=== PATIENT | female | born 1930 | race Caucasian/White ===

== ENCOUNTER 2017-03-06 09:04 | Day surgery (SDC) | payer BC ==
[2017-02-28 11:15] LABS: BASOPHILS 0.6 %; BASOPHILS ABSOLUTE 0.05 10/3/uL (0.0-0.16); EOSINOPHILS 3.7 %; EOSINOPHILS ABSOLUTE 0.33 10/3/uL (0.0-0.53); HEMOGLOBIN 12.6 g/dL (12.0-16.0); IMMATURE GRANULOCYTES 0.3 %; IMMATURE GRANULOCYTES ABSOLUTE 0.03 10/3/uL (0.0-0.11); LYMPHOCYTES ABSOLUTE 1.33 10/3/uL (0.67-4.30); MEAN CORPUS HGB CONC 34.1 g/dL (32.0-36.0); MEAN CORPUSCULAR VOLUME 96.9 fL (80-100); MEAN PLATELET VOLUME 9.6 fL (9.2-13.0); MONOCYTES 7.1 %; MONOCYTES ABSOLUTE 0.63 10/3/uL (0.21-1.20); NEUTROPHILS 73.3 %; NEUTROPHILS ABSOLUTE 6.51 10/3/uL (2.02-8.40); PLATELET COUNT 257 10/3/uL (150-400); RED CELL COUNT 3.82 10/6/uL (4.0-5.6); WHITE BLOOD CELLS 8.9 10/3/uL (4.5-10.5)
[2017-02-28 11:21] LABS: MANUAL DIFF NO %
[2017-02-28 11:27] LABS: A/G RATIO 1.1 (0.7-1.9); ALBUMIN 3.8 G/DL (3.5-5.0); ALKALINE PHOSPHATASE 97 U/L (45-117); BUN (BLOOD UREA NITROGEN) 25 MG/DL (6-23); CALCIUM, SERUM 9.1 MG/DL (8.5-10.4); CHLORIDE, SERUM 106 MMOL/L (96-112); CO2 (CARBON DIOXIDE) 31 MMOL/L (24-34); CREATININE 0.96 MG/DL (0.55-1.02); GFR AFRICAN AMERICAN 63 ML/MIN (>=60); GFR NON AFRICAN AMERICAN 54 ML/MIN (>=60); GLOBULIN 3.5 G/DL (2.5-4.1); GLUCOSE, SERUM 103 MG/DL (60-99); POTASSIUM, SERUM 3.8 MMOL/L (3.5-5.3); SGOT(AST) 15 U/L (5-40); SGPT(ALT) 23 U/L (5-65); SODIUM, SERUM 140 MMOL/L (135-148); TOTAL BILIRUBIN 0.5 MG/DL (0-1.2); TOTAL PROTEIN 7.3 G/DL (6.0-8.5)
--- NOTE | ~2017-03-06 | OP ---
Record Of Operation [facility] [address] [place]. [address] NAME: MARY MILLIGAN : 32 STATUS : REG [facility] PAT#: [id number] AGE: 86 ADM/REG DATE : 03/06/17 MR#: [id number] REPORT SERV DATE: 03/06/17 DICTATED BY: PRASANNA MONTAGUE JR. DATE: 03/06/17 REPORT STATUS : Draft TRANSCRIBED BY: MODL DATE: 03/06/17 DATE OF PROCEDURE: REASON FOR SURGERY: This 86-year-old patient, presents with a low-grade malignancy under a centimeter in size in the upper inner quadrant of the left breast. 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 SURGEON: Prasanna Montague M.D. SURGERY PERFORMED: Left breast segmentectomy. DESCRIPTION OF PROCEDURE: The patient previously underwent ultrasound localization in the [facility]. [place] node biopsy is not to be done. She was taken to the operating room and under general anesthesia, she was prepped and draped in supine position in the usual sterile fashion. The old incision was marked and incised, and flaps were elevated in each direction. The now palpable nodule was removed with a generous margin. The anterior border of the undersurface of the skin, while the fascia was exposed of the deep margin. The spherical specimen measured about 3.5 cm across and was oriented for pathology. I attended the pathological sectioning and the flattened specimen did have a generous margin in all directions except superficially. Margins appear over a centimeter except for the superficial margin that extends into the fatty tissue. For this reason, an additional hemisphere of skin was taken from the old incision superiorly where that nodule was located, with this measuring now about 4.5 x 1.5 cm. It was removed and oriented for pathology. The wound was irrigated and hemostasis was obtained. The wound was closed with two layers of Monocryl. The patient tolerated the procedure well without complications. ESTIMATED BLOOD LOSS: Less than 10 mL. SPONGE COUNT: Correct. With the additional margin, it is hoped that radiation therapy can again be avoided. She declined radiation therapy years ago, and I would be more inclined with this diagnosis to allow the patient to have surgery without radiotherapy, and certainly this is in a standard of care. The only caveat is that I would consider this a recurrent cancer, and therefore Record Of Operation [facility] [address] [place]. [address] NAME: MARY MILLIGAN : 32 STATUS : REG [facility] PAT#: [id number] AGE: 86 ADM/REG DATE : 03/06/17 MR#: [id number] REPORT SERV DATE: 03/06/17 DICTATED BY: PRASANNA MONTAGUE JR. DATE: 03/06/17 REPORT STATUS : Draft TRANSCRIBED BY: MODL DATE: 03/06/17 one could argue postoperative radiation therapy. It will not impact survival. At the present time, the patient is again declining. The role hormone blocking therapy would be for lowering risk as opposed to survival benefits and at her advanced age, the risk probably outweigh the benefits and this may well also be avoided. Final pathology will dictate additional issues. /CHRISTINA Prasanna Montague Jr., M.D. / [id number] CC: Venkat Abdullahi Jr., M.D. [facility]
[~2017-03-06 09:04] MED LIST: ASACOL PO; COMBIGAN0.2 MG/0.5 OPH; COZAAR100 MG PO; CRESTOR5 MG PO; LUMIGAN OPH; MAX25 PO; MOBIC7.5 PO; REG PO; SYN.025B PO; TETRACYCLINE500 MG PO; TOPXL25 PO; ZYRTEC ALLGY10 MG PO; [UNRECOGNIZED DRUG - OTHER] PO; [UNRECOGNIZED DRUG - OTHER] RE
[2017-03-09] MEDS ORDERED: ASACOL HD800 MG PO (23:15)
[2017-03-09] MEDS ORDERED: COZAAR100 MG PO (23:16)
== END 2017-03-06 14:04 | disposition home or self-care (01) ==
LOC: SDC 09:04
PROVIDERS: Surgery Surgical Oncology
PROC: 0HBU0ZZ Excision of Left Breast, Open Approach (ICD-10-PCS; principal; 2017-03-06 10:15)
DX: C50.212 Malignant neoplasm of upper-inner quadrant of left female breast (principal); I10 Essential (primary) hypertension; E03.9 Hypothyroidism, unspecified; K21.9 Gastro-esophageal reflux disease without esophagitis; E78.5 Hyperlipidemia, unspecified; G62.9 Polyneuropathy, unspecified; R56.9 Unspecified convulsions; Z88.5 Allergy status to narcotic agent; Z86.73 Personal history of transient ischemic attack (TIA), and cerebral infarction without residual deficits; Z88.1 Allergy status to other antibiotic agents; Z88.8 Allergy status to other drugs, medicaments and biological substances; Z90.710 Acquired absence of both cervix and uterus; Z98.890 Other specified postprocedural states
CPT/HCPCS: 71020; 80053; 85025; 88305; 88307; 88341; 88342; 88360; 93005; J0690; J2250; J2405; J3010

== ENCOUNTER 2017-03-09 23:16 | Observation (INO) | payer BC ==
--- NOTE | ~2017-03-09 | HP ---
History And Physical [facility] [address] [address] [place]. [address] NAME: MARY MILLIGAN : 32 STATUS : ADM [facility] PAT#: [id number] AGE: 86 ADM/REG DATE : 03/09/17 MR#: [id number] REPORT SERV DATE: 03/10/17 DICTATED BY: JACQUELINE HERNÁNDEZ DATE: 03/10/17 REPORT STATUS : Draft TRANSCRIBED BY: MODL DATE: 03/10/17 DATE OF ADMISSION: 03/09/2017 CHIEF COMPLAINT: An 86-year-old female, presenting with difficult recovery from her recent breast surgery for recurrent cancer and now "blank out" spell. HISTORY OF PRESENT ILLNESS: The patient's history was obtained through careful interview with the patient and daughter coupled with review of [facility] and [facility] medical records. On 03/06/2017, the patient presented for left breast surgery for recurrence of cancer. She had difficult recovery from this and over last few days has felt tired. She describes some nausea, but no vomiting. She has had increased output in her colostomy. Tonight, she went out to a restaurant with some family, was about to eat some guacamole dip, when suddenly she just started staring blankly, lost memory, and then became unresponsive for about one or two minutes. She then had one episode of vomiting. She admits that in the restaurant she was feeling lightheaded, dizzy, and ill. Her only pain complaint has been some discomfort at the site of her left breast surgery about an aching quality 4/10 severity that is constant. No abdominal pain. No chest pain. No shortness of breath. No palpitations. No fevers or chills. REVIEW OF SYSTEMS: Otherwise, a 14-point review of systems was obtained and was negative. PAST MEDICAL HISTORY: 1. Left breast cancer first diagnosed in 2003 with just recurrence in February 2017 status post surgical resection. No radiation, no chemotherapy. 2. Hypertension. 3. Hypothyroidism. 4. Cystitis with urinary tract infections. 5. Ventral hernia. 6. Neuropathy. 7. Seizure x1. 8. Diverticulitis complicated with abscess and perforation resulting in partial colectomy. 9. Left ureteral stent placement. 10.COPD. 11.Diastolic congestive heart failure. 12.Esophageal stricture with dilatation seen by Dr. Duong. 13.Migraine headaches. PAST SURGICAL HISTORY: History And Physical [address] [place]. [address] NAME: MARY MILLIGAN : 32 STATUS : ADM [facility] PAT#: [id number] AGE: 86 ADM/REG DATE : 03/09/17 MR#: [id number] REPORT SERV DATE: 03/10/17 DICTATED BY: JACQUELINE HERNÁNDEZ DATE: 03/10/17 REPORT STATUS : Draft TRANSCRIBED BY: CHRISTINA DATE: 03/10/17 1. Breast cancer surgery in 2004 and then again in 2017. 2. Colostomy. 3. Cholecystectomy. 4. Right eye detached retina. 5. Lumbar spine surgery. 6. Cystocele and rectocele repair. 7. Facial reconstruction. 8. Colovesical fistula repair. 9. Hernia repair. ALLERGIES: IV CONTRAST, CODEINE, AND KEFLEX. SOCIAL HISTORY: Quit smoking in 1999. Drinks occasional wine. Has been a since 2003 and now lives alone. She has three children, one daughter who lives locally. FAMILY HISTORY: Cousin with colon cancer. Father with heart disease. CURRENT MEDICATIONS: Unknown at this time, but we requested that Pharmacy obtain a list for us. PHYSICAL EXAMINATION: VITAL SIGNS: Temperature 97.9, pulse 67, blood pressure 115/53, respiratory rate 17, O2 saturation 98% on room air. GENERAL: A pleasant, cooperative female, in no evidence of acute distress. HEENT: Pupils are equal, round, and reactive to light. No conjunctival pallor. No scleral icterus. Nares are patent. Oropharynx is clear of obstruction but the patient has very dry mucous membranes with cracking of the tongue and lips. NECK: Trachea midline, no thyromegaly. LYMPH: No cervical lymphadenopathy. No supraclavicular lymphadenopathy. RESPIRATORY: Clear to auscultation at bases. No wheezes, rales, or rhonchi. Normal respiratory effort. CARDIOVASCULAR: Regular rate and rhythm. No murmurs, rubs, or gallops. No extremity edema is appreciated. ABDOMEN: Soft, nontender, nondistended. Normal bowel sounds auscultated throughout. No hepatosplenomegaly. NEUROLOGICAL: Cranial nerves 2 through 12 are intact and symmetrical. The patient has 5/5 strength in upper and lower extremities that is symmetrical. DERMATOLOGICAL: Warm and dry extremities. No pallor. No cyanosis. The patient has tenting of the skin to suggest significant dehydration. PSYCHIATRIC: Normal affect. Good mood. Alert and oriented x3. LABORATORY DATA: White blood cell count 12.7, hemoglobin 14, hematocrit 39, platelets 249. Sodium 136, potassium 3.2, chloride 103, bicarb 23, BUN 42, creatinine 1.11, glucose 131, troponin negative. INR 1.4. Urinalysis shows large leukocyte esterase, 12 white blood cells, 6 hyaline casts. STUDIES: History And Physical [address] [address] NAME: MARY MILLIGAN : 32 STATUS : ADM [facility] PAT#: [id number] AGE: 86 ADM/REG DATE : 03/09/17 MR#: [id number] REPORT SERV DATE: 03/10/17 DICTATED BY: JACQUELINE HERNÁNDEZ DATE: 03/10/17 REPORT STATUS : Draft TRANSCRIBED BY: MODL DATE: 03/10/17 1. Chest x-ray by my own evaluation shows COPD changes, left pleural reaction. 2. EKG by my own evaluation shows sinus rhythm, first-degree AV block. ASSESSMENT AND PLAN: 1. Blackout spell with mild syncope and unresponsiveness. I believe this was a mild vasovagal spell at a restaurant exacerbated by the patient's underlying dehydration. We will continue to follow orthostatics, check telemetry, place on IV fluids, and monitor. 2. Dehydration. Place on IV fluids. 3. Urinary tract infection. Place on IV Levaquin. Check urine culture. History of cystitis followed by Dr. Escalera. 4. Left breast cancer, status post surgical resection 03/06/2017 with stable appearing surgical site. 5. Chronic obstructive pulmonary disease, placed on DuoNeb nebulizers. KPL/MODL Jacqueline Hernández M.D. / [id number] CC: MD Zander Ham M.D. Jeffrey K. Mullins, MD
--- NOTE | ~2017-03-09 | DS ---
Discharge Summary [facility] [address] [place]. [address] NAME: MARY MILLIGAN : 34 STATUS : DIS [facility] PAT#: [id number] AGE: 86 ADM/REG DATE : 03/09/17 MR#: [id number] REPORT SERV DATE: 03/11/17 DICTATED BY: VINAYAK MARTINEZ DATE: 03/11/17 REPORT STATUS : Draft TRANSCRIBED BY: MODMichael DATE: 03/11/17 ADMISSION DATE: 03/09/2017 DISCHARGE DATE: 03/11/2017 DISCHARGE DIAGNOSES: 1. Most likely vasovagal syncope. 2. Dehydration, now resolved. 3. No evidence of urinary tract infection. 4. Left breast cancer, status post surgical resection on 03/06/2017, currently stable. 5. Chronic obstructive pulmonary disease. 6. Glaucoma. 7. Hypothyroidism. 8. Hypertension. 9. Gastroparesis. 10.Hyperlipidemia. CONSULTANTS DURING THIS HOSPITALIZATION: None. INVASIVE PROCEDURES DONE DURING THIS HOSPITALIZATION: None. BRIEF HISTORY OF PRESENT ILLNESS: The patient is an 86-year-old female, recently had breast surgery and then was also having some symptoms of urinary tract, was given tetracyclines, had persistent nausea, and had a lightheaded dizzy spell in a restaurant, so she was admitted. For detailed history and physical exam, please see note dictated by Dr. Trey Spears on 03/09/2017. HOSPITAL COURSE: After being admitted to the hospital, this patient was noted to have a slightly elevated creatinine and an evidence of acute kidney injury. She was given copious amounts of IV fluids that significantly improved her blood pressure as well. Orthostatics were negative. She was monitored on a heart monitor for 24 to 48 hours. There was no evidence of any arrhythmias and she is in sinus rhythm. She feels well and is tolerating diet. Nausea has abated. I have discontinued all antibiotics at this time. Urine culture grew diphtheroids. Otherwise, she remained stable and is being discharged in stable condition. DISCHARGE DISPOSITION: Home. DISCHARGE ACTIVITY: As tolerated. DISCHARGE DIET: Low-sodium diet. DISCHARGE MEDICATIONS: Aspirin 81 mg once daily, Combigan ophthalmic drops twice daily in both eyes, Lumigan ophthalmic drops in both eyes, levothyroxine 25 mcg once daily, Zyrtec 10 mg once daily, losartan 100 mg once daily, Asacol 1600 mg three times daily, Reglan 10 mg twice daily, multivitamins one tablet daily, Lopressor XL 25 mg once every morning, Crestor 5 mg once at bedtime, Maxzide 37.5/25 one tablet daily, and stool softener 1 capsule daily. Discharge Summary [address] [place]. [address] NAME: MARY MILLIGAN : 34 STATUS : DIS [facility] PAT#: [id number] AGE: 86 ADM/REG DATE : 03/09/17 MR#: [id number] REPORT SERV DATE: 03/11/17 DICTATED BY: VINAYAK MARTINEZ DATE: 03/11/17 REPORT STATUS : Draft TRANSCRIBED BY: CHRISTINA DATE: 03/11/17 DISCHARGE FOLLOWUP: With Dr. Zander Gomez in one week. More than 30 minutes spent planning this patient's discharge, reconciling medications, discussing hospital care, and studies with the patient at the bedside, and documenting this discharge. DICTATED BY: Venkat Frank/CHRISTINA Vinayak Martinez M.D. / [id number] CC: Venkat Frank M.D.
[2017-03-09 22:08] LABS: BASOPHILS 0.2 %; BASOPHILS ABSOLUTE 0.03 10/3/uL (0.0-0.16); EOSINOPHILS 1.7 %; EOSINOPHILS ABSOLUTE 0.21 10/3/uL (0.0-0.53); HEMATOCRIT 39.1 % (36.0-48.0); HEMOGLOBIN 13.5 g/dL (12.0-16.0); IMMATURE GRANULOCYTES 0.4 %; IMMATURE GRANULOCYTES ABSOLUTE 0.05 10/3/uL (0.0-0.11); LYMPHOCYTES 14.9 %; LYMPHOCYTES ABSOLUTE 1.88 10/3/uL (0.67-4.30); MEAN CORPUS HGB CONC 34.5 g/dL (32.0-36.0); MEAN CORPUSCULAR HEMOGLOB 32.9 pg (26.0-34.0); MEAN CORPUSCULAR VOLUME 95.4 fL (80-100); MEAN PLATELET VOLUME 10.6 fL (9.2-13.0); MONOCYTES 8.5 %; MONOCYTES ABSOLUTE 1.08 10/3/uL (0.21-1.20); NEUTROPHILS 74.3 %; PLATELET COUNT 249 10/3/uL (150-400); RBC DISTRIBUTION WIDTH 12.6 % (12.0-16.0)
[2017-03-09 22:10] LABS: WHITE BLOOD CELLS 12.7 10/3/uL (4.5-10.5)
[2017-03-09 22:11] LABS: MANUAL DIFF NO %
[2017-03-09 22:18] LABS: INTERNATIONAL NORMAL RATI 1.4 UNITS (-); PARTIAL THROMBO TIME 34.5 SEC (22.5-37.2)
[2017-03-09 22:22] LABS: BUN (BLOOD UREA NITROGEN) 42 MG/DL (6-23); CHEST PAIN PROFILE TAT 0 Hrs 18 Mins; CHLORIDE, SERUM 103 MMOL/L (96-112); CO2 (CARBON DIOXIDE) 23 MMOL/L (24-34); CREATININE 1.11 MG/DL (0.55-1.02); GFR AFRICAN AMERICAN 53 ML/MIN (>=60); GFR NON AFRICAN AMERICAN 46 ML/MIN (>=60); GLUCOSE, SERUM 131 MG/DL (60-99); POTASSIUM, SERUM 3.2 MMOL/L (3.5-5.3); SODIUM, SERUM 136 MMOL/L (135-148); TROPONIN I <0.02 NG/ML (<0.05)
[2017-03-09 22:23] LABS: PROTIME (NOT ORD) 16.7 SEC (12.0-14.5)
[2017-03-09 22:25] LABS: ASCORBIC ACID (UR NOT ORDER) NEG (NEG); BILIRUBIN, URINE NEGATIVE (NEG); ER URINALYSIS TAT 0 Hrs 09 Mins; KETONE, URINE NEGATIVE (NEG); LEUKOCYTE ESTERASE(NOT OR LARGE (NEG); NITRITE (URINE) NEG (NEG); WBC (NOT ORDERED) (RFLEX) 12 (0-5)
[~2017-03-09 23:16] MED LIST changes: +ASACOL HD800 MG PO
[2017-03-09] MEDS ORDERED: CRESTOR5 MG PO (23:17)
[2017-03-09] MEDS ORDERED: ZYRTEC ALLGY10 MG PO (23:17)
[2017-03-09] MEDS ORDERED: REG PO (23:17)
[2017-03-09] MEDS ORDERED: TOPXL25 PO (23:18)
[2017-03-09] MEDS ORDERED: SYN.025B PO (23:18)
[2017-03-09] MEDS ORDERED: MAX25 PO (23:19)
[2017-03-09] MEDS ORDERED: COMBIGAN0.2 MG/0.5 OPH (23:19)
[2017-03-09] MEDS ORDERED: LUMIGAN OPH (23:20)
[2017-03-09] MEDS ORDERED: MULTIVIT/MIN PO (23:20)
[2017-03-09] MEDS ORDERED: TETRACYCLINE PO (23:21)
[2017-03-09] MEDS ORDERED: ASAB PO (23:22)
[2017-03-09] MEDS ORDERED: STOOL SOFTENER PO (23:23)
[2017-03-10 13:57] LABS: INTERNATIONAL NORMAL RATI 1.2 UNITS (-); PARTIAL THROMBO TIME 27.9 SEC (22.5-37.2); PROTIME (NOT ORD) 14.7 SEC (12.0-14.5)
[2017-03-10 14:11] LABS: ALBUMIN 3.1 G/DL (3.5-5.0); ALKALINE PHOSPHATASE 97 U/L (45-117); CALCIUM, SERUM 8.6 MG/DL (8.5-10.4); CHLORIDE, SERUM 109 MMOL/L (96-112); CO2 (CARBON DIOXIDE) 19 MMOL/L (24-34); CREATININE 0.93 MG/DL (0.55-1.02); GFR AFRICAN AMERICAN 65 ML/MIN (>=60); GFR NON AFRICAN AMERICAN 56 ML/MIN (>=60); GLOBULIN 3.2 G/DL (2.5-4.1); GLUCOSE, SERUM 111 MG/DL (60-99); POTASSIUM, SERUM 3.4 MMOL/L (3.5-5.3); SGOT(AST) 27 U/L (5-40); SGPT(ALT) 34 U/L (5-65); SODIUM, SERUM 139 MMOL/L (135-148); TOTAL BILIRUBIN 0.8 MG/DL (0-1.2); TOTAL PROTEIN 6.3 G/DL (6.0-8.5); TROPONIN I <0.02 NG/ML (<0.05)
[2017-03-10 14:12] LABS: BUN (BLOOD UREA NITROGEN) 31 MG/DL (6-23); ULTRASENSITIVE TSH 0.489 MCIU/ML (0.358-3.740)
[2017-03-10 14:35] LABS: PROCALCITONIN < 0.05 ng/mL (<0.5)
[2017-03-10 15:37] LABS: BASOPHILS 0.1 %; BASOPHILS ABSOLUTE 0.01 10/3/uL (0.0-0.16); EOSINOPHILS 0.5 %; EOSINOPHILS ABSOLUTE 0.05 10/3/uL (0.0-0.53); HEMOGLOBIN 12.4 g/dL (12.0-16.0); IMMATURE GRANULOCYTES 0.3 %; IMMATURE GRANULOCYTES ABSOLUTE 0.03 10/3/uL (0.0-0.11); LYMPHOCYTES 16.8 %; LYMPHOCYTES ABSOLUTE 1.67 10/3/uL (0.67-4.30); MEAN CORPUS HGB CONC 34.4 g/dL (32.0-36.0); MEAN CORPUSCULAR HEMOGLOB 32.8 pg (26.0-34.0); MEAN CORPUSCULAR VOLUME 95.2 fL (80-100); MEAN PLATELET VOLUME 10.2 fL (9.2-13.0); MONOCYTES 9.6 %; MONOCYTES ABSOLUTE 0.95 10/3/uL (0.21-1.20); NEUTROPHILS 72.7 %; NEUTROPHILS ABSOLUTE 7.22 10/3/uL (2.02-8.40); PLATELET COUNT 250 10/3/uL (150-400); RBC DISTRIBUTION WIDTH 12.7 % (12.0-16.0); RED CELL COUNT 3.78 10/6/uL (4.0-5.6); WHITE BLOOD CELLS 9.9 10/3/uL (4.5-10.5)
[2017-03-10 15:38] LABS: MANUAL DIFF NO %
[2017-03-11 04:51] LABS: ALBUMIN 2.9 G/DL (3.5-5.0); CALCIUM, SERUM 8.8 MG/DL (8.5-10.4); CHLORIDE, SERUM 112 MMOL/L (96-112); CO2 (CARBON DIOXIDE) 16 MMOL/L (24-34); GFR AFRICAN AMERICAN 68 ML/MIN (>=60); GFR NON AFRICAN AMERICAN 59 ML/MIN (>=60); GLUCOSE, SERUM 94 MG/DL (60-99); PHOSPHORUS, SERUM 2.9 MG/DL (2.5-4.5); SODIUM, SERUM 139 MMOL/L (135-148)
[2017-03-11 04:55] LABS: BUN (BLOOD UREA NITROGEN) 26 MG/DL (6-23); POTASSIUM, SERUM 4.1 MMOL/L (3.5-5.3)
[2017-03-11 07:04] LABS: BASOPHILS 0.4 %; BASOPHILS ABSOLUTE 0.03 10/3/uL (0.0-0.16); EOSINOPHILS 4.9 %; EOSINOPHILS ABSOLUTE 0.39 10/3/uL (0.0-0.53); HEMATOCRIT 36.6 % (36.0-48.0); HEMOGLOBIN 12.4 g/dL (12.0-16.0); IMMATURE GRANULOCYTES 0.4 %; IMMATURE GRANULOCYTES ABSOLUTE 0.03 10/3/uL (0.0-0.11); LYMPHOCYTES 19.1 %; LYMPHOCYTES ABSOLUTE 1.52 10/3/uL (0.67-4.30); MEAN CORPUS HGB CONC 33.9 g/dL (32.0-36.0); MEAN CORPUSCULAR HEMOGLOB 32.5 pg (26.0-34.0); MEAN CORPUSCULAR VOLUME 96.1 fL (80-100); MEAN PLATELET VOLUME 9.6 fL (9.2-13.0); MONOCYTES 11.7 %; MONOCYTES ABSOLUTE 0.93 10/3/uL (0.21-1.20); NEUTROPHILS 63.5 %; NEUTROPHILS ABSOLUTE 5.04 10/3/uL (2.02-8.40); PLATELET COUNT 209 10/3/uL (150-400); RBC DISTRIBUTION WIDTH 13.2 % (12.0-16.0); RED CELL COUNT 3.81 10/6/uL (4.0-5.6); WHITE BLOOD CELLS 7.9 10/3/uL (4.5-10.5)
[2017-03-11 07:05] LABS: MANUAL DIFF NO %
== END 2017-03-11 10:00 | disposition home or self-care (01) ==
LOC: ER 23:16 → 2SO 23:23
PROVIDERS: Internal Medicine; Nurse Practitioner; Student in an Organized Health Care Education/Training Program
DX: R55 Syncope and collapse (principal); E86.0 Dehydration; I11.0 Hypertensive heart disease with heart failure; I50.30 Unspecified diastolic (congestive) heart failure; J44.9 Chronic obstructive pulmonary disease, unspecified; E03.9 Hypothyroidism, unspecified; K31.84 Gastroparesis; H40.9 Unspecified glaucoma; E78.5 Hyperlipidemia, unspecified; N30.90 Cystitis, unspecified without hematuria; G62.9 Polyneuropathy, unspecified; G40.909 Epilepsy, unspecified, not intractable, without status epilepticus; K57.92 Diverticulitis of intestine, part unspecified, without perforation or abscess without bleeding; Z93.3 Colostomy status; Z90.49 Acquired absence of other specified parts of digestive tract; Z88.5 Allergy status to narcotic agent; Z88.1 Allergy status to other antibiotic agents; Z91.041 Radiographic dye allergy status; Z82.49 Family history of ischemic heart disease and other diseases of the circulatory system; Z85.3 Personal history of malignant neoplasm of breast; Z87.891 Personal history of nicotine dependence; Z79.82 Long term (current) use of aspirin; Z79.899 Other long term (current) drug therapy; Z98.890 Other specified postprocedural states
CPT/HCPCS: 70450; 71010; 80048; 80053; 80069; 81001; 83735; 83880; 84145; 84443; 84484; 85025; 85610; 85730; 87086; 93005; 94640; 96372; 96374; 99285; A9270-GY; G0378; J1956; J2405